=== PATIENT | male | born 1980 | race Caucasian/White ===

== ENCOUNTER 2022-10-10 10:26 | Emergency (ER) | payer MEDICAID ==
[~2022-10-10] VITALS: Wt 83.9 kg
[2022-10-10] MEDS ORDERED: PREDNISONE20 M1 PO (11:58)
[2022-10-10] MEDS ORDERED: CEPHALEXIN500 M1 PO (11:58)
== END 2022-10-10 12:00 | disposition home or self-care (01) ==
LOC: ED 10:26
DX: J03.90 Acute tonsillitis, unspecified (principal); Z88.0 Allergy status to penicillin